=== PATIENT | female | born 1950 | race Caucasian/White ===

== ENCOUNTER 2016-10-19 07:27 | Emergency (ER) | payer OTHER ==
[2016-10-19 07:34] VITALS: TEMP 97.5
--- NOTE | 2016-10-19 07:46 | EDPHY ---
H & P Stated Complaint: 0200 in bed twisted r knee Time Seen by Provider: 10/19/16 07:40 HPI/ROS: CHIEF COMPLAINT: Right knee pain HISTORY OF PRESENT ILLNESS: Patient is a 66-year-old female comes to the emergency department complaining of knee pain that is now resolved. She states that it felt like her kneecap subluxed. She states that this happened to her 5 times in her life but twice in the last 2 months. Typically when she rubs her knee against something or is kneeling or twisting. She had a lump to they lateral aspect of her leg that is now resolved. She states that once a goes back into place she feels fine. She is able to ambulate. Normal pulses and sensation. REVIEW OF SYSTEMS: Constitutional: denies: chills, fever, recent illness, recent injury EENTM: denies: blurred vision, double vision, nose congestion Respiratory: denies: cough, shortness of breath Cardiac: denies: chest pain, irregular heart rate, lightheadedness, palpitations Gastrointestinal/Abdominal: denies: abdominal pain, diarrhea, nausea, vomiting, blood streaked stools Genitourinary: denies: dysuria, frequency, hematuria, pain Musculoskeletal: See HPI Skin: denies: lesions, rash, jaundice, bruising Neurological: denies: headache, numbness, paresthesia, tingling, dizziness, weakness Hematologic/Lymphatic: denies: blood clots, easy bleeding, easy bruising Immunologic/allergic: denies: HIV/AIDS, transplant EXAM: GENERAL: Well-appearing, well-nourished and in no acute distress. HEAD: Atraumatic, normocephalic. EYES: Pupils equal round and reactive to light, extraocular movements intact, sclera anicteric, conjunctiva are normal. ENT: TMs normal, nares patent, oropharynx clear without exudates. Moist mucous membranes. NECK: Normal range of motion, supple without lymphadenopathy or JVD. LUNGS: Breath sounds clear to auscultation bilaterally and equal. No wheezes rales or rhonchi. HEART: Regular rate and rhythm without murmurs, rubs or gallops. ABDOMEN: Soft, nontender, normoactive bowel sounds. No guarding, no rebound. No masses appreciated. BACK: No CVA tenderness, no spinal tenderness, step-offs or deformities EXTREMITIES: Normal range of motion, no pitting or edema. No clubbing or cyanosis. NEUROLOGICAL: Cranial nerves II through XII grossly intact. Normal speech, normal gait. 5/5 strength, normal movement in all extremities, normal sensation PSYCH: Normal mood, normal affect. SKIN: Warm, dry, normal turgor, no visible rashes or lesions. Source: Patient Exam Limitations: No limitations - Personal History Current Tetanus/Diphtheria Vaccine: Yes Tetanus Vaccine Date: WITHIN 10 YRS - Medical/Surgical History Hx Asthma: No Hx Chronic Respiratory Disease: No Hx Diabetes: No Hx Cardiac Disease: No Hx Renal Disease: No Hx Cirrhosis: No Hx Alcoholism: No Hx HIV/AIDS: No Hx Splenectomy or Spleen Trauma: No Other PMH: r knee subluxes - Family History Significant Family History: No pertinent family hx - Social History Smoking Status: Former smoker Alcohol Use: None Drug Use: None Constitutional: Initial Vital Signs Temperature (C) 36.4 C 10/19/16 07:32 Heart Rate 67 10/19/16 07:32 Respiratory Rate 18 10/19/16 07:32 Blood Pressure 134/80 H 10/19/16 07:32 O2 Sat (%) 94 10/19/16 07:32 O2 Delivery Mode Room Air Allergies/Adverse Reactions: No Allergies [NKA] Allergy (Verified 10/19/16 07:30) Home Medications: Medication Instructions Recorded Aspirin 08/14/09 CALCIUM 1,200 MG TABLET CHEW BID 08/14/09 CO Q-10 100 08/14/09 ESTRACE 08/14/09 FOSAMAX 08/14/09 MAGNESIUM CITRATE 08/14/09 Multivitamin 08/14/09 SIMVASTATIN 20 mg PO 08/14/09 Vitamin D 08/14/09 Losartan Potassium 10/19/16 Medical Decision Making - Diagnostics Imaging: X-ray: Knee x-ray was obtained. I viewed the images myself on the PACS system. My interpretation of the images is: Negative. The radiologist interpretation is pending. ED Course/Re-evaluation: We discussed the x-ray results. The patient is reassured. I will for her to an orthopedist and we discussed usage of a brace. She agrees with this plan. She declines any further workup or testing. She is ambulating without difficulty. Differential Diagnosis: Partial list of the Differential diagnosis considered include but were not limited to; patella dislocation, arthritis and although unlikely based on the history and physical exam, I also considered knee dislocation, fracture. I discussed these differential diagnoses and the plan with the patient as well as the usual and expected course. The patient understands that the diagnosis is provisional and that in medicine we are not always correct and that further workup is often warranted. Usual and customary warnings were given. All of the patient's questions were answered. The patient was instructed to return to the emergency department should the symptoms at all worsen or return, otherwise to followup with the physician as we discussed. Departure - Departure Disposition: Home, Routine, Self-Care Clinical Impression: Patellar dislocation Qualifiers: Encounter type: initial encounter Laterality: right Qualified Code(s): S83.004A - Unspecified dislocation of right patella, initial encounter Condition: Fair Instructions: Patellar Dislocation (ED) Referrals: Perla Hobson MD [Primary Care Provider] - As per Instructions Mirlande Feldman MD [Medical Doctor] - As per Instructions
--- NOTE | 2016-10-19 09:39 | DX ---
Right Knee, 5 Views Indication: Pain. Patellar dislocations morning.. Technique: AP, obliques, lateral, and Merchant views. Comparison: None Findings: No acute fracture. The patella is normally positioned on the merchant view. Small smoothly corticated ossicles project in the intercondylar notch adjacent the medial intercondylar spine and al michael the lateral facet of the patella. 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 Mild productive arthropathy involves the tibiofemoral joints evidenc ed by small marginal osteophytes and spurs emanate off the intercondylar spines. The tibiofemoral mario nt spaces are relatively well-preserved. No effusion. Impression: 1. No acute fracture or effusion. 2. Normally aligned patella. 3. Favor CPPD arthropathy rather than osteoarthritis.
[2016-10-19 11:03] VITALS: BP 136/78; PULSE 58; RESP 16; O2SAT 95
== END 2016-10-19 11:02 | disposition home or self-care (01) ==
DX: S83.004A Unspecified dislocation of right patella, initial encounter (principal); Z79.82 Long term (current) use of aspirin; Z87.891 Personal history of nicotine dependence; X58.XXXA Exposure to other specified factors, initial encounter

== ENCOUNTER → 2017-02-18 | Outpatient (CLI) | payer OTHER | LOC: FIMAGING 08:55 | PROVIDERS: ATTEND Family Medicine | DX: Z12.31 Encounter for screening mammogram for malignant neoplasm of breast (principal); Z80.3 Family history of malignant neoplasm of breast | CPT/HCPCS: G0202 ==

== ENCOUNTER → 2018-02-20 | Outpatient (CLI) | payer OTHER | LOC: FIMAGING 08:32 | PROVIDERS: ATTEND Family Medicine | DX: Z12.31 Encounter for screening mammogram for malignant neoplasm of breast (principal); Z80.3 Family history of malignant neoplasm of breast ==